=== PATIENT | female | born 1970 | race Hispanic/Latino ===

== ENCOUNTER 2018-11-08 12:14 | Emergency (ER) | payer BC | END 2018-11-08 13:23 | disposition home or self-care (01) | LOC: EDH 12:14 | DX: S70.362A Insect bite (nonvenomous), left thigh, initial encounter (principal); L03.116 Cellulitis of left lower limb; A49.01 Methicillin susceptible Staphylococcus aureus infection, unspecified site; I10 Essential (primary) hypertension; Z98.890 Other specified postprocedural states; W57.XXXA Bitten or stung by nonvenomous insect and other nonvenomous arthropods, initial encounter; Y93.89 Activity, other specified; Y92.89 Other specified places as the place of occurrence of the external cause; Y99.8 Other external cause status ==

== ENCOUNTER 2020-09-09 18:27 | Emergency (ER) | payer BC ==
[2020-09-09] MEDS ORDERED: ASPIRIN 325 MG TABLET ONE (19:01)
[2020-09-09 19:09] LABS: BASOPHILS % (AUTO) 0.7 % (0.0-5.0); EOSINOPHILS % (AUTO) 1.7 % (0.0-8.0); HEMATOCRIT 41.8 % (36-48); LYMPHOCYTES % (AUTO) 35.7 % (21.0-51.0); MEAN CORPUSCULAR HEMOGLOBIN 28.4 pg (27.0-33.0); MEAN CORPUSCULAR HGB CONC 33.7 g/dL (32.0-36.0); MEAN CORPUSCULAR VOLUME 84.3 fL (79-99); MONOCYTES % (AUTO) 5.8 % (3.0-13.0); NEUTROPHILS % (AUTO) 55.8 % (40.0-77.0); PLATELET COUNT (AUTO) 355 K/uL (130-400); RED BLOOD CELL COUNT(AUTO) 4.96 MIL/uL (4.00-5.50); WHITE BLOOD COUNT (AUTO) 11.4 K/uL (4.8-10.8)
[2020-09-09 19:12] LABS: CREATININE 1.3 mg/dL (0.5-1.5); POTASSIUM 3.1 mmol/L (3.5-5.1)
[2020-09-09 19:17] LABS: BILIRUBIN,TOTAL 1.1 mg/dL (0.2-1.0); TOTAL PROTEIN, SERUM 8.3 g/dL (6.0-8.3)
[2020-09-09 19:47] LABS: INR 0.94 (0.85-1.15); PARTIAL THROMBOPLASTIN TIME 25.4 SEC (26.3-35.5); PROTHROMBIN TIME 10.2 SEC (9.6-11.6)
[2020-09-09 20:23] LABS: MAGNESIUM 1.3 mg/dL (1.80-2.40); THYROID STIMULATING HORMONE 3.29 uIU/mL (0.36-3.74)
[2020-09-09 20:46] LABS: APPEARANCE,URINE SL CLOUDY (CLEAR); BILIRUBIN,URINE NEGATIVE (NEGATIVE); COLOR,URINE YELLOW (YELLOW); GLUCOSE, URINE (UA) NEGATIVE (NEGATIVE); KETONES,URINE 5 mg/dL (NEGATIVE); LEUKOCYTE ESTERASE ,URINE SMALL (NEGATIVE); NITRATE,URINE NEGATIVE (NEGATIVE); OCCULT BLOOD,URINE TRACE-LYSED (NEGATIVE); PH,URINE 5.5 (5.0-8.0); PROTEIN,URINE 100 mg/dL (NEGATIVE); UROBILINOGEN,URINE 0.2 mg/dL (0.2-1.0)
[2020-09-09 20:54] LABS: BACTERIA,URINE Few /HPF (None Seen); RBC,URINE None Seen /HPF (0-1)
[2020-09-09] MEDS ORDERED: POTASSIUM BICARB/CIT AC 25 MEQ TABLET.EFF ONE (20:57)
[2020-09-09] MEDS ORDERED: SODIUM CHLORIDE 0.9% 1000ML 1,000 ML IV ONE (20:59)
[2020-09-09] MEDS ORDERED: MAGNESIUM OXIDE 400 MG TABLET PO ONE (21:00)
== END 2020-09-09 22:18 | disposition home or self-care (01) ==
LOC: EDH 18:27
DX: E87.6 Hypokalemia (principal); E83.42 Hypomagnesemia; E86.0 Dehydration; R53.81 Other malaise; R53.83 Other fatigue; E11.9 Type 2 diabetes mellitus without complications; E78.00 Pure hypercholesterolemia, unspecified; I10 Essential (primary) hypertension; Z79.899 Other long term (current) drug therapy
CPT/HCPCS: 36415; 71045; 80053; 81001; 82550; 83735; 84443; 84484; 85025; 85610; 85730; 87088; 93005; 96360; 96361; 99285; J7030

== ENCOUNTER → 2020-11-22 | Outpatient (CLI) | payer BC | END | disposition home or self-care (01) | LOC: SHCH 15:27 | PROVIDERS: ATTEND Internal Medicine Cardiovascular Disease | DX: R06.09 Other forms of dyspnea (principal); R07.9 Chest pain, unspecified | CPT/HCPCS: 93306; 93356 ==

== ENCOUNTER → 2022-06-29 | Emergency (ER) | payer BC ==
[~2022-06-29] VITALS: Ht 160 cm; Wt 78.5 kg
[~2022-06-29] MED LIST: 0.9%NACL 1000ML 1,000 ML IV SCH; DIPHENHYDRAMINE HCL 25 MG CAPSULE ONE; DIPHENHYDRAMINE HCL 25 MG CAPSULE PO ONE; FAMOTIDINE 20MG TAB ONE; FAMOTIDINE 20MG TAB PO ONE; NIFEDIPINE 10 MG CAP PO ONE; SOLU-MEDROL 125MG VIAL IM ONE; SOLU-MEDROL 125MG VIAL ONE
[2022-06-29 17:34] LABS: APPEARANCE,URINE SL CLOUDY (CLEAR); BILIRUBIN,URINE NEGATIVE (NEGATIVE); COLOR,URINE YELLOW (YELLOW); GLUCOSE, URINE (UA) 500 mg/dL (NEGATIVE); KETONES,URINE NEGATIVE (NEGATIVE); LEUKOCYTE ESTERASE ,URINE TRACE (NEGATIVE); NITRATE,URINE NEGATIVE (NEGATIVE); OCCULT BLOOD,URINE NEGATIVE (NEGATIVE); PROTEIN,URINE 30 mg/dL (NEGATIVE); UROBILINOGEN,URINE 0.2 mg/dL (0.2-1.0)
[2022-06-29 17:35] LABS: BASOPHILS % (AUTO) 0.6 % (0.0-5.0); EOSINOPHILS % (AUTO) 1.2 % (0.0-8.0); HEMATOCRIT 41.2 % (36-48); LYMPHOCYTES % (AUTO) 39.7 % (21.0-51.0); MEAN CORPUSCULAR HGB CONC 34.5 g/dL (32.0-36.0); MEAN CORPUSCULAR VOLUME 81.3 fL (79-99); MONOCYTES % (AUTO) 7.7 % (3.0-13.0); NEUTROPHILS % (AUTO) 50.5 % (40.0-77.0); PLATELET COUNT (AUTO) 319 K/uL (130-400); RED BLOOD CELL COUNT(AUTO) 5.07 MIL/uL (4.00-5.50); RED CELL DISTRIBUTION WIDTH 12.2 % (11.0-15.5); WHITE BLOOD COUNT (AUTO) 9.3 K/uL (4.8-10.8)
[2022-06-29 17:44] LABS: CREATININE 1.5 mg/dL (0.5-1.5); POTASSIUM 3.6 mmol/L (3.5-5.1)
[2022-06-29 17:47] LABS: RBC,URINE 0-1 /HPF (0-1)
[2022-06-29 17:48] LABS: BACTERIA,URINE Rare /HPF (None Seen); SQUAMOUS EPITHELIAL CELL,UR Moderate /HPF (0-2)
[2022-06-29 17:51] LABS: ALBUMIN 3.6 g/dL (3.5-5.0); CRP QUANTITATIVE 5.9 mg/L (0.00-9.0); TOTAL PROTEIN, SERUM 7.7 g/dL (6.0-8.3)
[2022-06-29 19:10] VITALS: BP 147/79
== END | disposition home or self-care (01) ==
LOC: EDH 16:27
DX: I95.1 Orthostatic hypotension (principal); E86.0 Dehydration; T50.995A Adverse effect of other drugs, medicaments and biological substances, initial encounter; E11.65 Type 2 diabetes mellitus with hyperglycemia; Z20.822 Contact with and (suspected) exposure to COVID-19; E78.00 Pure hypercholesterolemia, unspecified; I10 Essential (primary) hypertension; M19.90 Unspecified osteoarthritis, unspecified site; E66.9 Obesity, unspecified; Z68.30 Body mass index [BMI] 30.0-30.9, adult; Y92.89 Other specified places as the place of occurrence of the external cause
CPT/HCPCS: 99284; 96360; 71045; 87635; 84484; 80053; 85025; 87804 ×2; 86140; 81001; 36415; 96372; 93005; Q0163; C9803; J2930

== ENCOUNTER 2025-08-09 14:46 | Emergency (ER) | payer BC ==
[~2025-08-09] VITALS: Ht 160 cm; Wt 81.6 kg
[~2025-08-09 14:46] MED LIST changes: -0.9%NACL 1000ML 1,000 ML IV SCH; +ACET-2079 PO; +ASPI-1443 PO; +ATOR40TA69 PO; +BUME1TAB7 PO; +CARV12.511 PO; +CELE-146 PO; +CLON0.1T PO; -DIPHENHYDRAMINE HCL 25 MG CAPSULE ONE; -DIPHENHYDRAMINE HCL 25 MG CAPSULE PO ONE; +ESCI5SOL4 PO; -FAMOTIDINE 20MG TAB ONE; -FAMOTIDINE 20MG TAB PO ONE; +HYDR25 PO; +INSU100I47 SQ; +INSU3INS3 SQ; +KETO-108 OP; +LOSA100T59 PO; +LUBI24CA40 PO; +METF-527 PO; -NIFEDIPINE 10 MG CAP PO ONE; +ONDA-105 PO; +PRED10TA3 PO; +PRED20TA3 PO; -SOLU-MEDROL 125MG VIAL IM ONE; -SOLU-MEDROL 125MG VIAL ONE
[2025-08-09 15:13] LABS: IMMATURE GRANULOCYTE ABSOLUTE 0.03 K/uL (0-1); NUCLEATED RED BLOOD CELLS 0.0 % (0.0-0.19); PLATELET COUNT (AUTO) 351 K/uL (130-400); RED BLOOD CELL COUNT(AUTO) 5.31 MIL/uL (4.00-5.50); RED CELL DISTRIBUTION WIDTH 12.2 % (11.0-15.5); WHITE BLOOD COUNT (AUTO) 9.8 K/uL (4.8-10.8)
[2025-08-09 15:21] LABS: CREATININE 1.6 mg/dL (0.5-1.0); GLOMERULAR FILTR. RATE CALC 38.0 mL/min (>90); GLUCOSE,RANDOM 370.0 mg/dL (70-105); SODIUM SERUM 139.0 mmol/L (136-145); UREA NITROGEN, BLOOD 20.0 mg/dL (7-18)
[2025-08-09 15:26] LABS: CREATINE KINASE, TOTAL 90.0 U/L (21-232)
--- NOTE | 2025-08-09 16:01 | HMCIMG ---
EXAM: CR Chest, 1 View. CLINICAL HISTORY: sob COMPARISON: None provided. FINDINGS: LUNGS: There is no mass, infiltrate, or acute pulmonary abnormality. PLEURAL SPACES: No evidence of pleural effusion or pneumothorax. MEDIASTINUM: The cardiomediastinal silhouette is within normal limits. BONES: No acute osseous abnormality. IMPRESSION: No acute cardiopulmonary pathology is evident. /[place]
--- NOTE | 2025-08-09 16:32 | ERN ---
General Chief Complaint: Shortness of Breath Stated Complaint: SOB W/ EXERTION Time Seen by MD: 14:48 Source: patient History of Present Illness Initial Comments 54-year-old female coming in complaining of shortness of breath on ambulation. She states that she does has a history of the" issue with the heart". Per patient she has had similar episodes in the past. No fever no chills no vomiting Allergies: Coded Allergies: No Known Allergies (Unverified Allergy, Unknown, 06/29/22) No Known Drug Allergies (Unverified Allergy, Unknown, 02/09/25) Home Meds Active Scripts Furosemide (Lasix 20Mg Tab) 20 Mg Tablet, 1 TAB PO DAILY for 10 Days, #10 TAB 0 Refills Prov:RUBEN ROMO MD 08/09/25 Nitrofurantoin Monohyd/M-Cryst (Macrobid 100 mg Capsule) 100 Mg Capsule, 1 CAP PO BID for 7 Days, #14 CAP 0 Refills Prov:RUBEN ROMO MD 08/09/25 Insulin Glargine,Hum.rec.anlog (Lantus Solostar) 100 Unit/Ml (3 Ml) Insuln.pen, 30 UNIT SQ BID for 30 Days, #18 ML 0 Refills Prov:AG FIELDS MD 02/24/25 Insulin Aspart (Insulin Aspart Flexpen) 100 Unit/Ml (3 Ml) Insuln.pen, 15 UNIT SQ TIDAC for 30 Days, #3 SYRINGE Prov:AG FIELDS MD 02/24/25 Prednisone (Prednisone) 20 Mg Tablet, 30 MG PO DAILY for 2 Days, #2 TAB Prov:AG FIELDS MD 02/24/25 Prednisone (Prednisone) 20 Mg Tablet, 40 MG PO DAILY for 2 Days, #2 TAB Prov:AG FIELDS MD 02/24/25 Prednisone (Prednisone) 20 Mg Tablet, 20 MG PO DAILY for 2 Days, #2 TAB Prov:AG FIELDS MD 02/24/25 Prednisone (Prednisone) 10 Mg Tablet, 10 MG PO DAILY for 2 Days, #2 TAB Prov:AG FIELDS MD 02/24/25 Bumetanide (Bumex) 1 Mg Tab, 1 TAB PO DAILY for 30 Days, #30 TAB 0 Refills Prov:AG FIELDS MD 02/24/25 Hydralazine HCl (Apresoline) 25 Mg Tab, 25 MG PO TID, #90 TAB Prov:AG FIELDS MD 02/24/25 Atorvastatin Calcium (LIPITOR) 40 Mg Tablet, 40 MG PO HS, #30 TAB Prov:AG FIELDS MD 02/24/25 Reported Medications Ondansetron HCl (Ondansetron HCl) 8 Mg Tablet, 8 MG PO AD for NAUSEA, TAB 02/10/25 Aspirin (Aspirin EC) 81 Mg Tablet.dr, 1 TAB PO DAILY for 30 Days, #30 TAB 0 Refills 02/10/25 Ketorolac Tromethamine (Ketorolac Tromethamine) 0.5 % Drops, 1 DROP OP QID for itching, #5 ML 0 Refills 02/10/25 Lubiprostone (Amitiza) 24 Mcg Capsule, 24 MCG PO BID for CONSTIPATION, CAP 02/10/25 Celecoxib (Celecoxib) 100 Mg Capsule, 100 MG PO AD for PAIN, CAP 02/10/25 Escitalopram Oxalate (Escitalopram Oxalate) 5 Mg/5 Ml Solution, 5 MG PO DAILY for DEPRESSION, ML 02/10/25 Carvedilol (Carvedilol) 12.5 Mg Tablet, 12.5 MG PO BID, TAB 02/10/25 Acetaminophen with Codeine (Acetaminophen-Cod #3 Tablet) 300 Mg-30 Mg Tablet, 1 TAB PO Q6HPRN PRN for pain for 7 Days, #28 TAB 0 Refills 02/10/25 Losartan Potassium (Losartan Potassium) 100 Mg Tablet, 1 TAB PO DAILY for HIGH BLOOD PRESSURE for 30 Days, #30 TAB 0 Refills 02/10/25 Clonidine HCl (Clonidine HCl) 0.1 Mg Tablet, 1 TAB PO AD for HIGH BLOOD PRESSURE for 30 Days, #30 TAB 0 Refills 02/10/25 Metformin HCl (Metformin HCl ER) 1,000 Mg Tab.er.24, 1000 MG PO BID 02/10/25 Past Medical History Past Medical History: Arthritis, Diabetes-Type II, Hypertension, Vascular Disease Medical History Other: Obesity Past Surgical History: Other Surgical History Other: LEG Family History Family History: Negative Social History Social History: Negative, Lives with family ROS Dictation CONSTITUTIONAL: No chills, no fever, no weakness, no diaphoresis, no malaise. HEAD/FACE: No signs of trauma. EENT: No eye pain, no blurred vision, no tearing, no double vision, no ear pain, no ear discharge, no nose pain, no nasal congestion, no throat pain, no throat swelling, no mouth pain. RESPIRATORY: No cough, no orthopnea, SOB, no stridor, no wheezing. CARDIOVASCULAR: No chest pain, no edema, no palpitations, no syncope. GASTROINTESTINAL/ABDOMINAL: No abdominal pain, no constipation, no diarrhea, no nausea, no vomiting. GENITOURINARY: No abnormal discharge, no dysuria, no frequent urination, no hematuria. No complaints of pain in the genitals. MUSCULOSKELETAL: No back pain, no gout, no joint pain, no joint swelling, no muscle pain, no muscle stiffness, no neck pain. INTEGUMENTARY: No change in color, no change in hair/nails, no dryness, no lesion, no lumps, no rash. NEUROLOGICAL/PSYCH: No anxiety, not depressed, no emotional problem, no headache, no numbness, no pre-existing deficit, no history of seizures, no tremors, no weakness. HEMATOLOGIC/LYMPHATIC: Not anemic, no history of blood clots, no apparent bleeding, no bruising, glands not swollen. All Systems Negative, Except as Noted. Physical Exam Physical Exam Dictation VITAL SIGNS: Reviewed. GENERAL APPEARANCE: Alert, oriented x3, no acute distress, obese. HEAD AND FACE: Non-traumatic. EYES: PERRL, pink conjunctivas, eyelid no trauma, anterior chamber clear. EARS: Pinnas intact and no signs of trauma or erythema. Ear canals clear and no discharge. TMs no erythema. NOSE: No discharge, no bleeding. OROPHARYNX: Mouth normal, teeth no caries, tongue pink. Pharynx clear, no erythema. Tonsils no exudates, no abscesses noted. Mucous membrane moist. NECK: Supple, non-tender, no thyromegaly, no masses, no JVD, no bruits. BREAST: Deferred. CHEST: No tenderness, no crepitus, no paradoxical movement, no retractions. LUNGS: Clear, well-ventilated, symmetric, no rales, no wheezing, no rhonchi, no stridor, good breath sounds bilaterally. HEART: Regular rate, regular rhythm, no murmur, no gallops. VASCULAR: No peripheral edema. ABDOMEN: Soft, positive bowel sounds, nondistended, no guarding, nontender, no rebound, no masses no hepatomegaly, no splenomegaly, no Bangura's sign, no hernias. RECTAL: Deferred. GENITAL: Deferred. NEUROLOGICAL: Normal speech, gross motor function intact, gross sensory function intact. MUSCULOSKELETAL: Neck nontender, full range of motion, back nontender, full range of motion. EXTREMITIES: Nontender, full range of motion. SKIN: Color pink, dry, no turgor, no rash, no lacerations, no abrasions, no contusions. LYMPHATICS: Deferred. Results Laboratory and Microbiology Lab and Micro Result Laboratory Tests Test 08/09/25 15:06 08/09/25 16:17 08/09/25 19:06 08/09/25 20:29 White Blood Count 9.8 K/uL (4.8-10.8) Red Blood Count 5.31 MIL/uL (4.00-5.50) Hemoglobin 15.0 g/dL (12.0-16.0) Hematocrit 45.1 % (36-48) Mean Corpuscular Volume 84.9 fL (79-99) Mean Corpuscular Hemoglobin 28.2 pg (27.0-33.0) Mean Corpuscular Hemoglobin Concent 33.3 g/dL (32.0-36.0) Red Cell Distribution Width 12.2 % (11.0-15.5) Platelet Count 351 K/uL (130-400) Mean Platelet Volume 9.6 fL (7.5-10.5) Immature Granulocyte % (Auto) 0.3 % (0-1) Neutrophils (%) (Auto) 69.9 % (40.0-77.0) Lymphocytes (%) (Auto) 22.8 % (21.0-51.0) Monocytes (%) (Auto) 5.3 % (3.0-13.0) Eosinophils (%) (Auto) 1.0 % (0.0-8.0) Basophils (%) (Auto) 0.7 % (0.0-5.0) Neutrophils # (Auto) 6.8 K/uL (1.8-7.7) Lymphocytes # (Auto) 2.2 K/uL (1.0-4.8) Monocytes # (Auto) 0.5 K/uL (0.1-1.0) Eosinophils # (Auto) 0.10 K/uL (0.00-0.70) Basophils # (Auto) 0.07 K/uL (0.00-0.20) Absolute Immature Granulocyte (auto 0.03 K/uL (0-1) Nucleated Red Blood Cells 0.0 % (0.0-0.19) Sodium Level 139 mmol/L (136-145) Potassium Level 4.4 mmol/L (3.5-5.1) Chloride Level 95 mmol/L (101-111) L Carbon Dioxide Level 31 mmol/L (21-32) Blood Urea Nitrogen 20 mg/dL (7-18) H Creatinine 1.6 mg/dL (0.5-1.0) H Glomerular Filtration Rate Calc 38 mL/min (>90) Random Glucose 370 mg/dL (70-105) H Total Calcium 9.3 mg/dL (8.5-10.1) Magnesium Level 1.30 mg/dL (1.80-2.40) L Total Creatine Kinase 90 U/L (21-232) Troponin I High Sensitivity 10 ng/L (4-50) B-Type Natriuretic Peptide 338 pg/mL (0-100) H Influenza Type A Antigen Negative For Type A Influenza Type B Antigen Negative For Type B SARS-CoV-2, RNA, NAAT NEGATIVE SARS CoV-2 Group A Streptococcus Rapid negative (NEGATIVE) Urine Color LIGHT-YELLOW (YELLOW) Urine Appearance CLEAR (CLEAR) Urine pH 6.5 (5.0-8.0) Urine Specific [place] 1.009 (1.001-1.031) Urine Protein 200 mg/dL (NEGATIVE) H Urine Glucose (UA) >=1000 mg/dL (NEGATIVE) H Urine Ketones NEGATIVE mg/dL (NEGATIVE) Urine Occult Blood +- (TRACE) (NEGATIVE) H Urine Nitrate NEGATIVE (NEGATIVE) Urine Bilirubin NEGATIVE mg/dL (NEGATIVE) Urine Urobilinogen 0.2 mg/dL (0.2-1.0) Urine Leukocyte Esterase 75 Cale/uL (NEGATIVE) H Urine RBC 2-5 /HPF (0-1) H Urine WBC 11-25 /HPF (0-1) H Urine Squamous Epithelial Cells MOD /HPF (0-2) Urine Bacteria RARE /HPF (None Seen) Urine Other Casts 1 /LPF (None Seen) Whole Blood Glucose 196 MG/DL (70-110) H Labs Reviewed?: Yes EKG/XRAY/US/CT/MRI EKG Comment 08/09/2025 time 2:54 p.m. Ventricular rate 106 Sinus tachycardia [place] [address] wave elevation or depression MDM I assumed care at 7:00 p.m.- Differential diagnosis: Decompensated CHF, microaspiration, hyperglycemia with a DKA, deconditioning from morbid obesity, the right flank pain could be related to a UTI This is a 54-year-old female who presented to the emergency room with complaints of shortness of breath with the exertion and she also reported PND and orthopnea for the past 4 days. She stated that when she had similar symptoms in the past she had fluid in her lungs. She stated that she also had some nausea and multiple somatic complaints including right-sided flank pain. She said she felt sick but denied any fevers chills or rigors no vomitings diarrhea. She has not been taking her metformin for a long time. Temperature 98.1 pulse 110 respirations 16 blood pressure 145/100 with a pulse oximetry of 97% on room air Her chronic medical problems include psoriatic arthritis, diabetes mellitus, hypertension, vascular disease and obesity. I reviewed labs CBC showed a white count of 9.8 hemoglobin 15. Brain natriuretic peptide is 338. Swabs for COVID and streptococcal infection are negative. BNP 7 is significant for a BUN and creatinine of 20 and 1.0 with a glucose of 370. Magnesium was 1.3. Chest x-ray unremarkable for any acute infiltrate pulmonary vasculature maybe slightly prominent. Initiated a small dose of Lasix with a suspicion for a diastolic heart failure and also requested a regular insulin dose. With urinalysis being abnormal I have requested an antibiotic. Patient felt significantly better in terms of her breathing and diuresed very well. She also felt her back pain improving. 9:00 p.m. her repeat Accu-Chek was 196. Have updated her on all the lab results plan of care so far and recommended that she should follow up with her primary care physician monument installer and mat machine tender as outpatient once she is discharged She verbalized full understanding Rationale: Tests considered and ordered secondary to shared decision making include: Previous outside records reviewed: Old ER visits. Risk of complication and/or morbidity or mortality of patient management: None Medications-Per medication reconciliation Need for hospitalization: Patient does not meet criteria for hospitalization. Need for emergency major/minor surgery: No There are no social concerns with this patient. Prescription drug management Prescriptions will include symptomatic care Patient's prior external medical records from other ER visits were reviewed by me as indicated. Prior testing and results from previous visits were reviewed. Prior tests were taken into account with medical decision making and resource utilization, independent historian/historians were used to obtain complete medical history. I independently interpreted the test that were performed, results were reviewed by me and considered findings on radiology if ordered. Medical management and examination interpretation discussions were had by me with other qualified healthcare professionals as indicated for the patient's care. ED Course Orders Procedure Category Date Status Time Cbc With Differential LAB 08/09/25 Complete 14:56 Chest 1vw RAD 08/09/25 Resulted 14:56 12 Lead Ekg Tracing- EKG 08/09/25 Complete Technical 14:56 Magnesium LAB 08/09/25 Complete 14:56 Creatine Kinase, Total LAB 08/09/25 Complete 14:56 Troponin I High LAB 08/09/25 Complete Sensitivity 14:56 Urinalysis Profile LAB 08/09/25 Complete 14:56 Basic Metabolic Panel LAB 08/09/25 Complete 14:56 Covid Rna Naat LAB 08/09/25 Complete 14:56 Influenza Type A & B, LAB 08/09/25 Complete Rapid 14:56 Rapid (Group A Strep) LAB 08/09/25 Complete 14:56 B-Type Natriuretic LAB 08/09/25 Complete Peptide 16:32 Furosemide 20mg Vial PHA 08/09/25 Complete (Lasix 20mg Vial) 19:30 Insulin Regular, PHA 08/09/25 Complete Human 3ml (Humulin R 19:30 Magnesium 4gm Premix PHA 08/09/25 Complete 100ml (Magnesium 4g 19:30 Magnesium 2gm Premix PHA 08/09/25 Complete 50ml (Magnesium 2gm 19:30 Culture Urine BRANDI 08/09/25 In Process 20:10 Ceftriaxone 1g Vial PHA 08/09/25 Complete (Rocephine 1g Inj) 20:30 Random Accucheck At CPOE 08/09/25 Transmitted Bedside 20:19 Current Medications Medications (Trade) Dose Ordered Sig/Luke Route PRN Reason Start Time Stop Time Status Last Admin Dose Admin Ceftriaxone Sodium (ROCEphine 1G INJ) 1 gm ONCE ONCE IVPB 08/09/25 20:30 08/09/25 20:31 DC 08/09/25 20:40 Furosemide (LASix 20MG VIAL) 20 mg ONCE ONCE IV 08/09/25 19:30 08/09/25 19:31 DC 08/09/25 19:42 Insulin Human Regular (humuLIN R 100 UNIT/ML 3ML) 5 unit ONCE ONCE SQ 08/09/25 19:30 08/09/25 19:31 DC 08/09/25 20:26 Magnesium Sulfate 50 ml @ 0 mls/hr PROTOCOL PRN IV MAGNESIUM PROTOCOL 08/09/25 19:30 08/09/25 21:37 DC 08/09/25 19:43 Magnesium Sulfate (Magnesium 4gm Premix 100ml) 4 gm AD IV 08/09/25 19:30 08/09/25 19:28 DC Vital Signs Date Time Temp Pulse Resp B/P (MAP) Pulse Ox O2 Delivery O2 Flow Rate FiO2 08/09/25 19:11 98.8 85 20 170/105 98 Room Air* 0 21 08/09/25 17:04 99.0 78 20 110/71 99 Room Air* 0 21 08/09/25 14:47 98.1 110 16 145/100 97 Room Air 0 DX & DISP Disposition: Discharge Departure Impression: Primary Impression: Diastolic heart failure secondary to hypertension Additional Impressions: Uncontrolled diabetes mellitus with hyperglycemia, Obesity, UTI (urinary tract infection) Condition: Stable Scripts Furosemide (Lasix 20Mg Tab) 20 Mg Tablet 1 TAB PO DAILY for 10 Days, #10 TAB 0 Refills Prov: RUBEN ROMO MD 08/09/25 Nitrofurantoin Monohyd/M-Cryst (Macrobid 100 mg Capsule) 100 Mg Capsule 1 CAP PO BID for 7 Days, #14 CAP 0 Refills Prov: RUBEN ROMO MD 08/09/25 Additional Instructions: Patient and the caregiver have been informed of all the diagnostic tests and the imaging conducted during the today's visit to the emergency room and has verbalized understanding of the results I have personally reviewed and interpreted all diagnostic exams performed here in the ER today as well as the vital signs documented by the nursing staff. The patient is now being discharged to home and should follow up with the primary care physician or the specialist as directed by the ER staff. Patient to follow up with Dr. Brown monument installer and also with the per mat machine tender and primary care I educated her on loss of potassium with Lasix and she must follow up with the primary care and get her potassium checked frequently. She could eat a banana however with her diabetes mellitus and noncompliance I educated her that her sugars maybe in dangerously high zone. Referrals: SAGAR YOUNG MD (PCP) CARLEY STOVER MD Aug 09, 2025 16:31 RUBEN ROMO MD Aug 09, 2025 21:08
[2025-08-09 16:44] LABS: RAPID GROUP A STREP negative (NEGATIVE)
[2025-08-09 16:45] LABS: SARS-CoV-2, RNA, NAAT NEGATIVE SARS CoV-2 (NEGATIVE)
--- NOTE | 2025-08-09 16:52 | EKG ---
[facility] Test Date: 2025-08-09 Test Time: 14:54:04 Pat Name: OLMAN MORALES Department: ED Room: Gender: F [employer] Supervisor: [id number] : 1970 Requested By: CARLEY STOVER Order Number: [id number] Reading MD: Alia Noonan Measurements Intervals [place] Rate: 106 P: 32 [place]: 151 QRS: -11 QRSD: 85 T: 31 QT: 342 QTc: 455 Interpretive Statements Sinus tachycardia Inferior infarct, old Compared to ECG 02/10/2025 20:55:24 Myocardial infarct finding now present Sinus bradycardia no longer present Accelerated junctional rhythm no longer present Ventricular premature complex(es) no longer present AV dissociation no longer present ST (T wave) deviation no longer present Early repolarization no longer present Electronically Signed On 08-11-2025 10:18:41 CDT by Alia Noonan Please click the below link to view image of tracing.
[2025-08-09 16:54] LABS: INFLUENZA TYPE A Negative For Type A (NEGATIVE); INFLUENZA TYPE B Negative For Type B (NEGATIVE)
[2025-08-09 19:11] VITALS: BP 170/105; PULSE 85; RESP 20; TEMP 98.8; O2SAT 98
[2025-08-09] MEDS ORDERED: MAGNESIUM 4GM PREMIX 100ML IV SCH (19:30)
[2025-08-09] MEDS: MAGNESIUM 2GM PREMIX 50ML 50 ML IV PRN (19:43)
[2025-08-09 19:45] LABS: APPEARANCE,URINE CLEAR (CLEAR); GLUCOSE, URINE (UA) >=1000 mg/dL (NEGATIVE); LEUKOCYTE ESTERASE ,URINE 75 Leu/uL (NEGATIVE); NITRATE,URINE NEGATIVE (NEGATIVE); OCCULT BLOOD,URINE +- (TRACE) (NEGATIVE)
[2025-08-09 20:09] LABS: ADD UA MICROSCOPIC YES
[2025-08-09 20:11] LABS: OTHER CASTS, URINE 1 /LPF (None Seen); SQUAMOUS EPITHELIAL CELL,UR MOD /HPF (0-2)
[2025-08-09] MEDS ORDERED: FURO20TA6 PO (21:06)
[2025-08-09] MEDS ORDERED: NITR100C4 PO (21:06)
== END 2025-08-09 21:37 | disposition home or self-care (01) ==
LOC: EDH 14:58
DX: I11.0 Hypertensive heart disease with heart failure (principal); I50.30 Unspecified diastolic (congestive) heart failure; E11.59 Type 2 diabetes mellitus with other circulatory complications; E11.65 Type 2 diabetes mellitus with hyperglycemia; N39.0 Urinary tract infection, site not specified; E66.9 Obesity, unspecified; M19.90 Unspecified osteoarthritis, unspecified site; Z20.822 Contact with and (suspected) exposure to COVID-19; Z79.4 Long term (current) use of insulin; Z79.52 Long term (current) use of systemic steroids; Z79.82 Long term (current) use of aspirin; Z79.84 Long term (current) use of oral hypoglycemic drugs; Z79.899 Other long term (current) drug therapy
CPT/HCPCS: 99284; 96365; 71045; 96367; 87635; 96375; 82550; 83735; 84484; 80048; 83880; 85025; 87086; 87880; 87804 ×2; 82948; 81001; 36415; 93005; 96372; J1815; J3475; J0696; J1938